=== PATIENT | male | born 1970 | race African-American/Black ===

== ENCOUNTER 2022-05-30 17:08 | Emergency (ER) | payer SELFPAY ==
[~2022-05-30] VITALS: Ht 182.9 cm; Wt 125.0 kg
[2022-05-30 17:12] VITALS: BP 136/78
[2022-05-30 18:06] LABS: BASOPHILS % 1.2 % (0.0-2.0); EOSINOPHILS % 2.5 % (0.0-5.0); HEMATOCRIT. 41.3 % (42.0-52.0); HEMOGLOBIN. 13.8 g/dL (14.0-18.0); LYMPHOCYTES % 30.5 % (20.0-50.0); MEAN CORPUSCULAR HEMOGLOBIN 31.2 pg (28.0-32.0); MEAN CORPUSCULAR VOLUME 93.3 fL (80.0-94.0); MEAN PLATELET VOLUME 8.3 fl (7.4-10.4); MONOCYTES % 8.4 % (2.0-8.0); NEUTROPHILS % 57.4 % (40.0-76.0); RED BLOOD CELL COUNT 4.42 mill/uL (4.7-6.1)
[2022-05-30 18:12] LABS: CHLORIDE 107 mEq/L (98-107)
[2022-05-30 18:18] LABS: ETHANOL BLOOD 166 mg/dL
[2022-05-30 18:54] LABS: PLATELET 292 x1000/uL (130-400)
[2022-05-30 18:58] LABS: RED CELL DISTRIBUTION WIDTH 14.8 % (11.6-14.6)
== END 2022-05-30 21:54 | disposition home or self-care (01) ==
LOC: ER 17:08 → EDBD 17:08 → ER 21:54
DX: F10.129 Alcohol abuse with intoxication, unspecified (principal); Y90.6 Blood alcohol level of 120-199 mg/100 ml
CPT/HCPCS: 36415; 80053; 80320; 82962; 85025; 99283; G0480

== ENCOUNTER 2022-08-26 18:23 | Emergency (ER) | payer MEDICAID, OTHER ==
[~2022-08-26] VITALS: Ht 170.2 cm; Wt 83.0 kg
[2022-08-26] MEDS ORDERED: IBUP-2029 MT ×2 (19:13→19:14)
[2022-08-26] MEDS ORDERED: CEPH500C2 MT (19:14)
[2022-08-26] MEDS ORDERED: SULF1TAB48 MT (19:14)
[2022-08-26] MEDS ORDERED: LIDOCAINE HCL 1% 20ML VIAL (Pyxis) INJ INFIL ONE (19:15)
[2022-08-26] MEDS ORDERED: LIDOCAINE HCL 1% 10 MG/ML 10ML VIAL INJ NR (19:15)
[2022-08-26] MEDS ORDERED: NALOXONE HCL 0.4 MG/ML 1ML VIAL IM ONE (23:00)
[2022-08-27 00:27] LABS: BASOPHILS % 0.7 % (0.0-2.0); EOSINOPHILS % 1.8 % (0.0-5.0); HEMATOCRIT. 44.2 % (42.0-52.0); HEMOGLOBIN. 14.9 g/dL (14.0-18.0); LYMPHOCYTES % 19.9 % (20.0-50.0); MEAN CORPUSCULAR HEMOGLOBIN 30.5 pg (28.0-32.0); MEAN CORPUSCULAR VOLUME 90.3 fL (80.0-94.0); MONOCYTES % 11.2 % (2.0-8.0); NEUTROPHILS % 66.4 % (40.0-76.0); PLATELET 286 x1000/uL (130-400); RED CELL DISTRIBUTION WIDTH 14.7 % (11.6-14.6)
[2022-08-27 00:37] LABS: CHLORIDE 102 mEq/L (98-107)
[2022-08-27] MEDS ORDERED: CEPHALEXIN 250MG CAPSULE PO ONE (02:00)
[2022-08-27] MEDS ORDERED: SULFAMETHOXAZOLE/TRIMETHOPRIM 800/160MG TABLET PO ONE (02:00)
[2022-08-27 02:40] VITALS: BP 135/59
== END 2022-08-27 02:43 | disposition home or self-care (01) ==
LOC: ER 18:23
DX: L03.011 Cellulitis of right finger (principal); L02.511 Cutaneous abscess of right hand
CPT/HCPCS: 10060; 36415; 80048; 80320; 85025; 96372; 99283; J2310; Z7610; G0480